=== PATIENT | male | born 1990 | race Caucasian/White ===

== ENCOUNTER 2017-09-23 06:10 | Emergency (ER) | payer OTHER ==
[2017-09-23] MEDS ORDERED: Sodium Chloride 0.9% 1,000 ML IV ONE (06:35)
[2017-09-23] MEDS ORDERED: Diphtheria,Pertussis(Acell),Tetanus Vaccine 0.5 ML Syringe IM ONE (06:49)
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
[2017-09-23 07:08] LABS: CHLORIDE,CL 105 mEq/L (98-106); SODIUM,NA 140 mEq/L (136-145)
[2017-09-23] MEDS ORDERED: Lidocaine 1% with EPINEPHrine 1:100,000 20 ML MDV INJECT ONE (07:15)
[2017-09-23] MEDS ORDERED: Bupivacaine 0.5% 10 ML SDV INJECT ONE (07:15)
== END 2017-09-23 08:55 | disposition home or self-care (01) ==
LOC: EDBD → CC.ED 06:36
DX: S51.811A Laceration without foreign body of right forearm, initial encounter (principal); W26.0XXA Contact with knife, initial encounter
CPT/HCPCS: 12002; 36415; 70450; 71260; 72125; 73090-RT; 74177; 80053; 80305; 81001; 82150; 85025; 85610; 85730; 90471; 90715; 96360; 99285; J7030; Q9967